=== PATIENT | male | born 1975 | race Caucasian/White ===

== ENCOUNTER 2016-09-18 11:13 | Inpatient (IN) ==
[2016-09-18 12:04] LABS: URINE SOURCE CLEAN CATCH
[2016-09-18 12:04] LABS: BASO% 0.2 % (0.0-0.8); EOS# 0.02 X1000 (0.0-0.7); EOS% 0.1 % (0.0-10.0); HEMATOCRIT 45.8 % (42.0-52.0); HEMOGLOBIN 16.2 g/dL (14.0-18.0); IMM GRAN# 0.03 X1000 (0.0-0.04); IMM GRAN% 0.2 % (0.0-0.5); LYMPH# 1.22 X1000 (1.2-3.4); LYMPH% 7.2 % (20.5-51.1); MANUAL DIFF NEEDED? NO; MCH 31.5 PG (27-31); MCHC 35.4 g/dL (33-37); MCV 88.9 FL (81-99); MONO# 1.22 X1000 (0.11-0.59); MONO% 7.2 % (1.7-9.3); NEUT% 85.1 % (42.2-75.2); PLT 264 X1000 (130-400); RBC 5.15 XMIL (4.7-6.1)
[2016-09-18 12:10] LABS: BILIRUBIN URINE SMALL (NEGATIVE); BLOOD URINE NEGATIVE (NEGATIVE); CLARITY CLEAR (CLEAR); COLOR ORANGE; GLUCOSE URINE NEGATIVE (NEGATIVE); LEUKOCYTES URINE NEGATIVE (NEGATIVE); NITRITE URINE NEGATIVE (NEGATIVE); PROTEIN URINE TRACE mg/dL (NEGATIVE); SP GRAVITY URINE 1.025
[2016-09-18] MEDS ORDERED: NS 1,000 ML IV ONE (12:22)
[2016-09-18] MEDS ORDERED: ZOFRAN IV ONE (12:24)
[2016-09-18] MEDS ORDERED: MORPHINE IV ONE (12:24)
[2016-09-18 12:25] LABS: AGAP 13; ALKALINE PHOSPHATASE 57 U/L (32-122); AMYLASE 110 U/L (20-200); BUN 8 mg/dL (8-22); CALCIUM 9.5 mg/dL (8.8-10.2); CHLORIDE 96 mmol/L (98-107); COSMO 267; GOT 13 U/L (10-34); GPT 12 U/L (10-44); LIPASE 248 U/L (13-60); SODIUM 132 mmol/L (136-145); TCO2 23 mmol/L (25-35); TOTAL PROTEIN 7.3 g/dL (6.3-8.3)
--- NOTE | 2016-09-18 12:28 | PROVIDER DOCUMENTATION ---
HPI-Abdominal Pain/GI Problem - General Chief Complaint: Abdominal Pain Stated Complaint: ABD PAIN Time Seen by Provider: 09/18/16 12:09 Source: patient Allergies/Adverse Reactions: Patient Allergies Allergy/AdvReac Type Severity Reaction Status Date / Time No Known Allergies Allergy Verified 08/17/15 15:42 Home Medications: Home Medication List Medication Instructions Recorded Confirmed Last Taken Type Meloxicam [Mobic] 7.5 mg PO DAILY PRN #30 tablet 08/17/15 Unknown Rx Methocarbamol [Robaxin] 500 mg PO TID PRN #30 tablet 08/17/15 Unknown Rx Prednisone 10 mg PO DIRECTED #1 tab.ds.pk 08/17/15 Unknown Rx - History of Present Illness-ABD Nature of Presenting Problems: pt is a 41 y/o white male c chief complaint of LLQ abd pain that has been present x 2 days. Pt states that it has been progressively worsening. He describes the pain as an aching sensation that is made worse c movement and deep inspiration. Pt denies any bloody or dark stool however states that he had an episode of black stool last week. he denies any dysuria or hematuria. He denies any nausea or vomiting. On arrival, pt is in minimal distress. 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 Review of Systems - Adult - REVIEW OF SYSTEMS - ADULT Constitutional: reports: no symptoms reported. denies: chills, fatique Eyes: reports: no symptoms reported. denies: blurred vision, double vision Ears, Nose, Mouth & Throat: reports: no symptoms reported. denies: ear pain, nose pain Cardiovascular: reports: no symptoms reported. denies: chest pain, orthopnea Respiratory: reports: no symptoms reported. denies: cough, shortness of breath Gastrointestinal: reports: abdominal pain. denies: diarrhea, nausea Genitourinary: reports: no symptoms reported. denies: dysuria, hematuria Musculoskeletal: reports: no symptoms reported. denies: joint pain, joint swelling Integumentary: reports: no symptoms reported. denies: itching, rash Neurological: reports: no symptoms reported. denies: numbness, paresthesia Psychiatric: reports: no symptoms reported. denies: anxiety, emotional problems Endocrine: reports: no symptoms reported. denies: cold intolerance, heat intolerance Hematologic/Lymphatic: reports: no symptoms reported. denies: blood clots, low blood count Allergic/Immunologic: reports: no symptoms reported. denies: allergic reactions , frequent infections All Other Systems: Reviewed and Negative Past History - Adult - PAST MEDICAL HISTORY-ADULT Review of Records: reports: Old Records Reviewed, Nursing Assessment Review, Medications Reviewed, Social history reviewed & non-contributory. Major Childhood Illnesses: reports: denies history Cardiovascular: reports: denies history Respiratory: reports: denies history Gastrointestinal: reports: denies history Obstetrical/Gynecological: reports: denies history Genitourinary: reports: denies history Musculoskeletal: reports: denies history Neurological: reports: denies history Endocrine/Immune: reports: denies history Other Conditions: reports: denies history - IMMUNIZATION STATUS Childhood Immunizations: See Nurse Assessment Flu Vaccine: See Nurse Assessment - FAMILY HISTORY Family History: reviewed, not pertinent Physical Exam-General - PHYSICAL EXAM-ADULT Initial Vital Signs Reviewed: Yes - CONSTITUTIONAL General Appearance: alert, no apparent distress - EYES Eyes: PERRL/EOMI, pink conjunctivae - HEAD, EARS, NOSE, MOUTH & THROAT HENMT: normocephalic/atraumatic, moist mucous membranes, normal ENT inspection - NECK Neck: normal inspection - RESPIRATORY Respiratory: chest non-tender, lungs clear, normal breath sounds - CARDIOVASCULAR Cardiovascular: normal peripheral pulses, regular rate, rhythm - GASTROINTESTINAL (ABDOMEN) Abdominal Exam: soft, tenderness (LLQ guarding and tenderness) - LYMPHATIC Lymphatic: no adenopathy - MUSCULOSKELETAL Back Exam: normal inspection, no CVA tenderness, no vertebral tenderness Extremity: normal range of motion, non-tender, normal inspection - SKIN Integumentary: normal color, normal turgor, warm/dry - NEUROLOGIC Neurologic: grossly normal, no motor/sensory deficits - PSYCHIATRIC Psych/Mental Status: normal mood/affect, normal thought content, normal thought process, oriented x 3 Progress - PLAN OF CARE/RESULTS Progress/Plan/Lab Results: Vital Signs - 8 hr 09/18/16 11:27 Temperature 97.8 F Pulse Rate 101 H Respiratory Rate 20 Blood Pressure 136/82 O2 Sat by Pulse Oximetry 100 Laboratory Results - last 24 hr 09/18/16 09/18/16 11:37 12:03 WBC 16.91 H RBC 5.15 Hgb 16.2 Hct 45.8 MCV 88.9 MCH 31.5 H MCHC 35.4 RDW Std Deviation 12.8 Plt Count 264 MPV 10.0 Immature Gran % (Auto) 0.2 Neut % (Auto) 85.1 H Lymph % (Auto) 7.2 L [place] % (Auto) 7.2 Eos % (Auto) 0.1 Baso % (Auto) 0.2 Immature Gran # (Auto) 0.03 Neut # (Auto) 14.39 H Lymph # (Auto) 1.22 [place] # (Auto) 1.22 H Eos # (Auto) 0.02 Baso # (Auto) 0.03 Urine Source CLEAN CATCH Urine Color ORANGE Urine Clarity CLEAR Urine pH 6.0 Ur Specific [place] 1.025 Urine Protein TRACE A Urine Ketones TRACE A Urine Blood NEGATIVE Urine Nitrite NEGATIVE Urine Bilirubin SMALL A Urine Urobilinogen 1.0 Urine WBC NEGATIVE Urine Glucose NEGATIVE Orders Category Date Time Status Saline Loc DIRECTED Care 09/18/16 11:31 Active NPO Diet 09/18/16 11:31 Active CHEST-2 VIEWS [RAD] Stat Exams 09/18/16 12:[address] ABD/PELVIS W/ IV CONT ONLY [CT] Stat Exams 09/18/16 12:21 Ordered AMYLASE [CHEM] Stat Lab 09/18/16 11:37 Received CBC WITH ELECTRONIC DIFF [HEME] Stat Lab 09/18/16 11:37 Completed COMPREHENSIVE METABOLIC PANEL [CHEM] Stat Lab 09/18/16 11:37 Received LIPASE [CHEM] Stat Lab 09/18/16 11:37 Received 0.9% Sodium Chloride Inj [Ns] 1,000 ml Med 09/18/16 12:22 Active IV 999 mls/hr Morphine Med 09/18/16 12:24 Discontinued 4 mg IV NOW ONE Ondansetron [Zofran] Med 09/18/16 12:24 Discontinued 4 mg IV NOW ONE Result Diagrams: 09/18/16 11:37 09/18/16 11:37 - REASSESSMENT Reassessment #1 Time Reassessed: 14:10 (Discussed c Dr. Dumont who agreed c admission and plan of care after reviewing labs and imaging studies.) - CT/MRI 1 CT Study: Abdomen, Pelvis Impression: Abnormal (Inflammatory changes c phlegmon in the LUQ. Apparent descending adn sigmoid colitis c mildly thickened caraballo. No discrete abscess identified. No free air. The possibility of distal pancreatitis cannot be entirely excluded but the pancreas itself does not appear substantially inflammed - radiology report) - CONSULTS/PCP/HOSPITALIST Notification #1 *Consult/PCP/Hospitalist*: Dr. Seaman (General Surgery) Time Discussed: 14:31 (Discussed imaging and lab results. he feels that this does not require immediate surgery. Recommends admit to hospitalist. He will consult. Recommend starting Zosyn 3.375) #2 Consult: Dr. Faustin (Hospitalist) Time Discussed: 14:38 (Will see pt in the ER and admit.) Departure - Departure Time of Disposition Decision: 14:34 DIAGNOSIS: Phlegmon, Colitis Pancreatitis Qualifiers: Chronicity: acute Pancreatitis type: unspecified pancreatitis type Acute pancreatitis complication: unspecified Qualified Code(s): K85.90 - Acute pancreatitis without necrosis or infection, unspecified Disposition: ADMITTED INPATIENT 09 Certified Medical Emergency: Emergent Condition: Stable Referrals and Follow-Ups: None,PCP [Primary Care Provider] - Attestation - Physician/ ADOLPH Attestation Patient care was provided by Advanced Practice Provider:: Yes Advanced Practice Provider:: Elvin Sweet Advanced Practice Provider documentation review:: The Mid-level provider documentation, treatment plan and medical decision making was reviewed by the physician who agrees with all treatment and medical decision making by the P.
[2016-09-18 12:40] LABS: URINE CAST NONE SEEN /LPF; URINE CRYSTAL NONE SEEN /HPF; URINE CULTURE NEEDED? NO; URINE EPITHELIAL CELLS <10 /HPF (<10); URINE RBC <10 /HPF (<10); URINE WBC <10 /HPF (<10)
--- NOTE | 2016-09-18 13:32 | Diag Imaging Result Document ---
PROCEDURE NAME: CHEST-2 VIEWS - 09/18/2016 FRONTAL AND LATERAL CHEST, TWO VIEWS: FINDINGS: The lungs are well expanded. The heart is not enlarged. The vessels are not distended. No pneumonia. No pleural effusions. No pneumothoraces. IMPRESSION: No acute abnormality.
--- NOTE | 2016-09-18 13:49 | Diag Imaging Result Document ---
PROCEDURE NAME: CT ABD/PELVIS W/ IV CONT ONLY - 09/18/2016 CT ABDOMEN AND PELVIS WITH IV CONTRAST ONLY: Exam performed with intravenous contrast only per request of the referring provider. A dose-reduction protocol was used. COMPARISON: No comparison exam. FINDINGS: There are inflammatory changes of fat at the left upper quadrant abdomen with phlegmon. These partially surround the splenic flexure of the colon. The colon proximal to the splenic flexure is mildly distended with air and fecal debris. The left colon from the splenic flexure to the sigmoid is not distended and appears to have mildly thickened caraballo. These findings are suspicious for our descending and sigmoid colitis. Some of the inflammatory changes are located near the distal pancreas and pancreatitis cannot be entirely excluded, but the pancreas itself does not appear grossly inflamed. There is no extraluminal gas or abscess identified. There is no free air identified. There is no evidence of bowel obstruction. The appendix is mildly prominent in size but does not appear inflamed. The inflammatory changes abut the inferior spleen but the spleen, itself, has homogeneous attenuation. The liver and adrenal glands are unremarkable. There are no calcified gallstones or pericholecystic inflammation seen. The bilateral kidneys enhance homogeneously. There is no hydronephrosis. There are nonspecific small retroperitoneal lymph nodes. IMPRESSION: 1. Inflammatory changes with phlegmon in left upper quadrant. Apparent descending and sigmoid colitis with mildly thickened caraballo. No discrete abscess identified. No free air. 2. The possibility of distal pancreatitis cannot be entirely excluded but the pancreas, itself, does not appear substantially inflamed.
[2016-09-18] MEDS ORDERED: MORPHINE IM ONE (14:38)
[2016-09-18] MEDS ORDERED: ATIVAN IV PRN (15:17)
[2016-09-18] MEDS: NICODERM PATCH TD SCH (15:30)
[2016-09-18] MEDS ORDERED: LEVAQUIN 500 MG/D5W 500 MG/100 ML IVPB IV SCH (15:30)
[2016-09-18] MEDS ORDERED: ZOSYN 3.375 GM/NS 3.375 GM/50 ML IVPB IV SCH (15:30)
[2016-09-18] MEDS ORDERED: FLAGYL 500 MG/NS 500 MG/100 ML IVPB IV SCH (15:30)
[2016-09-18] MEDS ORDERED: SODIUM CHLORIDE 0.9% INJ SCH (15:30)
--- NOTE | 2016-09-18 16:00 | HISTORY AND PHYSICAL ---
CHIEF COMPLAINT: Abdominal pain. HISTORY OF PRESENT ILLNESS: Mr. Renee is a 41-year-old, male with a history of alcohol and nicotine dependence. Otherwise, no documented medical history. He presents with 48 hours of worsening abdominal pain, acute onset. He reports around 2 days ago he started having a left lower quadrant pain, which he describes as more sharp in nature, constant and radiating up into his shoulder blade on the left. He has not been able to eat. He has been mildly nauseous, but no vomiting. He denies any diarrhea. He denies any hematochezia or hematemesis. He reports chills last night, but no fevers. He denies any chest pain or shortness of breath. No lower extremity edema. He came to the ER today for evaluation. In the ER, he had a CT of the abdomen and pelvis done. It showed findings consistent with sigmoid colitis and phlegmon. Laboratory data shows an elevated white count. He is tachycardic, and giving him criteria for sepsis. At this time, his vital signs are stable and we are going to admit him for further treatment and evaluation. PAST MEDICAL HISTORY: 1. Nicotine dependence. 2. Alcohol dependence. 3. Gastritis. SURGICAL HISTORY: None. SOCIAL HISTORY: Patient smokes a half a pack a day. He reports he drinks 8-9 beers a day from to Saturday. He denies drug use. However, he did state that he took some of his aunt's pain medicine yesterday, which he is not prescribed for. He has 3 children. 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 His fiancee is at the bedside. FAMILY HISTORY: Noncontributory. REVIEW OF SYSTEMS: Fourteen-point review of systems obtained and found to be negative with the exception of the HPI. ALLERGIES: None. MEDICATIONS: None. PHYSICAL EXAMINATION: VITAL SIGNS: Blood pressure is 136/82, heart rate 101, respiratory rate is 20, O2 saturation 100% on room air. Temperature is 97.8. GENERAL: This is a well-developed, well-nourished, male, laying in the hospital bed in no acute distress. NEUROLOGIC: Nonfocal. Patient is awake alert, and oriented. He follows commands without focal deficits. HEENT: Head is atraumatic and normocephalic. His pupils are equal, round, and reactive to light. Oral mucosa is moist. Trachea is midline. NECK: No JVD or carotid bruits. CHEST: Diminished at the bases. Otherwise clear to auscultation bilaterally. CARDIOVASCULAR: Regular rate and rhythm. S1-S2 is noted. No murmurs, gallops , clicks, rubs. GI: Left lower quadrant tenderness to palpation. Otherwise belly is soft. Nondistended. Bowel sounds are positive. EXTREMITIES: Without edema, clubbing or cyanosis. Pulses are palpable bilaterally. DIAGNOSTIC DATA: Abdomen and pelvis CT show inflammatory changes with phlegmon in the left upper quadrant, apparent descending and sigmoid colitis with mildly thickened caraballo. No discrete abscess identified. No free air. Possibility of distal pancreatitis cannot be entirely excluded. Chest x-ray is negative. WBC 16.91, hemoglobin 16.2, hematocrit 45.8, platelet count 264. Sodium 132, potassium 4.0, chloride 96, CO2 of 23, anion gap 13, BUN 0.8, glucose 171. Bilirubin 1. AST 13, ALT 12, alkaline phosphatase 57, lipase 248. UA does not show acute abnormalities. ASSESSMENT AND PLAN: 1. Colitis with phlegmon: We are going to consult GI and surgery. We will get blood cultures and lactic acid. Start levaquin and flagyl. Continue IV fluids and pain medications and keep the patient n.p.o. 2. Systemic inflammatory response syndrome/sepsis: Patient meets criteria with tachycardia, white count, and source of gastritis and phlegmon. Blood cultures and broad- spectrum antibiotics will be initiated. We will also continue IV fluids. 3. Alcohol dependence: Patient has been highly advised to quit drinking. We will add p.r.n. IV Ativan for withdrawal. Check a B12, folate. 4. Nicotine dependence: Patient has been highly advised to quit smoking. Nicotine patch has been prescribed and will continue daily cessation education. 5. Deep vein thrombosis prophylaxis with sequential compression devices given. Dictated by PAT Spence for Brisa Faustin MD cc: PAT Spence MD The patient was seen and examined by me. I agree with the assessment and plan as dictated. [facility]
[2016-09-18] MEDS: PROTONIX IV SCH (16:14)
[2016-09-18] MEDS: NS 1,000 ML IV SCH (16:40)
[2016-09-18 17:36] LABS: HDL 69 mg/dL (35-55); LDL 93 mg/dL; TRIGLYCERIDES 75 mg/dL (39-160); VLDL 15 mg/dL
[2016-09-18 17:42] LABS: FREE T4 0.99 ng/dL (0.93-1.70)
[2016-09-18] MEDS: NORCO-5 PO PRN ×2 (18:23→22:41)
[2016-09-18 18:38] LABS: UR AMPHETAMINES QUAL NONE DETECTED (NONE DETECT); UR BARBITUATES QUAL NONE DETECTED (NONE DETECT); UR BENZODIAZEPIN QUAL NONE DETECTED (NONE DETECT); UR CANNABINOIDS QUAL PRESUMPTIVE POSITIVE (NONE DETECT); UR COCAINE QUAL NONE DETECTED (NONE DETECT); UR METHADONE QUAL NONE DETECTED (NONE DETECT); UR OPIATES QUAL NONE DETECTED (NONE DETECT); UR OXYCODONE QUAL PRESUMPTIVE POSITIVE (NONE DETECT); UR PCP QUAL NONE DETECTED (NONE DETECT)
[2016-09-18] MEDS: DILAUDID IV PRN ×2 (21:00→21:40)
[2016-09-18] MEDS: FLAGYL 500 MG/NS 500 MG/100 ML IVPB IV SCH (21:00)
--- NOTE | 2016-09-18 22:48 | CONSULTATION ---
DATE OF CONSULTATION: 09/18/2016 REFERRING PHYSICIAN: Brisa Faustin M.D. INDICATION FOR CONSULTATION: Abdominal pain. PRIMARY CARE PHYSICIAN: None. HISTORY OF PRESENT ILLNESS: The patient is a 41-year-old white male who presented to the emergency room for the evaluation of 36 hours of left upper quadrant, left middle quadrant abdominal pain. He reports the acute onset approximately 2 days ago. He describes the pain as sharp in nature that is constant with radiation into the shoulder blades. He notes that for the last week he has been acutely constipated. He typically has a daily bowel movement with no abdominal pain. In the last week, he reports a change in stool caliber and difficulty with defecation. He notes mild nausea but no vomiting. He denies blood in his stool but notes that his stools have been darker than usual. In the emergency room, a CT scan was performed and is consistent with sigmoid and descending colon colitis. His labs were consistent with acute colitis in that there is elevated white blood cell count. His CRP is also elevated at 128.45. The CT scan is also concerning for possible pancreatitis. The patient reports that he drinks 8-9 beers on a daily basis and has done so for the last 15-20 years. He typically drinks through Saturday. 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 Because of his symptoms, we are asked to participate in his care. PAST MEDICAL HISTORY: 1. Enterocolitis versus gastritis in 2013 treated with Prilosec. 2. Nicotine dependence in that he smokes 1/2 pack to 1 pack per day of cigarettes for last 20 years. 3. Alcohol dependence where he drinks 8-9 beers per day at least 4-5 days per week for the last 15-20 years. He denies recreational drug use. He is engaged and has 3 children. FAMILY HISTORY: Negative for colon cancer and colon polyps. MEDICATION ALLERGIES: None. HOME MEDICATIONS: None. REVIEW OF SYSTEMS: Positive for the information as noted above. PHYSICAL EXAM: Vital signs: Blood pressure is 134/70, pulse 76, respiration 18 , temperature of 98.7 degrees. HEENT: Negative. There is no jaundice. His conjunctivae are pale. His oropharyngeal mucosal membranes are moist. Pulmonary: Lungs are clear to auscultation with normal expiratory effort. Cardiovascular Exam: Reveals regular rate and rhythm with no murmurs, gallops, or rubs. Abdominal Exam: Reveals normoactive bowel sounds. The abdomen is soft with moderate left upper quadrant, left middle quadrant tenderness. There is no rebound or guarding. Extremities: Bilaterally are negative for cyanosis, clubbing, or edema. Skin: He has multiple tattoos. OBJECTIVE DATA: Remarkable for hemoglobin of 16.2 with hematocrit of 45.8 and a white count of 16.91. He has 264,000 platelets. Sodium is 132, potassium 4.0, chloride 96, CO2 of 23, BUN 8, creatinine 0.8 with a glucose of 171. Calcium is 9.5, total bilirubin 1.0, AST 13, ALT 12, amylase 110, vitamin B12 361, alkaline phosphatase 57, total protein 7.3 and albumin 4.0. His lipase is 248 and TSH is 3.29. IMPRESSION: 1. Abdominal pain. 2. Acute colitis. 3. History of gastroenteritis versus gastritis. 4. Nausea. 5. Vitamin B12 insufficiency (his level is less than 400). 6. Possible pancreatitis. RECOMMENDATION: 1. The patient is currently receiving Levaquin/Flagyl. I would agree with antibiotics for at least 10 days. 2. I agree with blood cultures pending further evaluation. 3. The patient has a history of alcohol dependence but normal liver function tests. I agree with monitoring for alcohol withdrawal. 4. He has a history of enterocolitis versus gastritis. I recommend Protonix 40 mg IV q.12 hours as he was taking Mobic on an intermittent basis at home although was not prescribed. 5. After his inflammation resolves, we will plan to perform EGD and colonoscopy to see if there is a potential cause that would result in his current symptoms. 6. Please check stool lactoferrin and a serum inflammatory bowel disease panel. 7. Additional recommendations to follow based on his clinical course. cc: Brisa Faustin MD [facility]
[2016-09-19] MEDS: DILAUDID IV PRN ×7 (01:18→22:15)
[2016-09-19] MEDS: NS 1,000 ML IV SCH ×3 (01:19→15:38)
[2016-09-19] MEDS: NORCO-5 PO PRN ×6 (02:50→23:59)
[2016-09-19] MEDS: FLAGYL 500 MG/NS 500 MG/100 ML IVPB IV SCH ×4 (03:02→22:15)
[2016-09-19 07:31] LABS: HEMOGLOBIN A1C 4.7 % (4.8-6.0)
[2016-09-19 07:40] LABS: AGAP 14; BUN 6 mg/dL (8-22); CALCIUM 8.7 mg/dL (8.8-10.2); CHLORIDE 101 mmol/L (98-107); COSMO 271; LIPASE 91 U/L (13-60); POTASSIUM 4.3 mmol/L (3.5-5.1); SODIUM 137 mmol/L (136-145); TCO2 22 mmol/L (25-35)
[2016-09-19 07:50] LABS: HEMATOCRIT 43.9 % (42.0-52.0); HEMOGLOBIN 14.9 g/dL (14.0-18.0); MCH 31.5 PG (27-31); MCHC 33.9 g/dL (33-37); MCV 92.8 FL (81-99); MPV 10.2 FL (7.4-10.4); RBC 4.73 XMIL (4.7-6.1)
[2016-09-19] MEDS: NICODERM PATCH TD SCH (09:26)
--- NOTE | 2016-09-19 10:38 | CONSULTATION ---
DATE OF CONSULTATION: 09/19/2016 HISTORY OF PRESENT ILLNESS: Mr. Saurabh Renee is a 41-year-old white male who 3 days ago began hurting in his abdomen and over the next 24 hours this pain persisted, was severe, causing him to present to the emergency department yesterday morning for evaluation. A CT scan suggested inflammation involving the splenic flexure and descending colon without evidence of abscess or free air. He has been admitted for IV antibiotics. We were asked to evaluate him. PAST MEDICAL HISTORY: He has had 1 broken bone but otherwise he has had no surgery or hospitalizations. MEDICATIONS: None. ALLERGIES: None. SOCIAL HISTORY: He works in [employer] and is very active. He does drink about 9 beers a day, through Saturday. He smokes 1 pack of cigarettes a day. He has a girlfriend for the last 3 years who is at his bedside. REVIEW OF SYSTEMS: He was seen in [place] ER about 3 years ago and was diagnosed with gastritis. He has had no significant weight loss and continues to be very active during the days. He has regular bowel movements. A 14-point review of systems was performed. FAMILY HISTORY: Noncontributory. PHYSICAL EXAMINATION: General: Mr. Narinder Renee is a middle-aged white male, who is of good weight and strong. Appears to be healthy. He is awake and cooperative. No acute distress. HEENT Exam: No jaundice. No oral lesions. Neck: No cervical or supraclavicular lymphadenopathy. Heart: Has a regular rate. Lungs: Clear to auscultation and percussion bilaterally. Abdomen: Flat. He is tender in the left upper quadrant of his abdomen. There is no palpable mass. No scar. No evidence of hernia. He has left-sided costovertebral tenderness. Rectal: Exam was not performed. Extremities: He does have palpable peripheral pulses. No peripheral edema. Neurological: He is alert and oriented x3 and appropriate. DIAGNOSTIC DATA: CT scan suggested colitis involving the splenic flexure and descending colon. His white blood cell count is decreased from 16 to 14 on IV antibiotics. ASSESSMENT AND PLAN: GI medicine has been consulted, Dr. Corral. I agree with the current treatment. cc: Wendy Seaman MD
--- NOTE | 2016-09-19 11:02 | PROGRESS NOTE ---
DATE: 09/19/2016 SUBJECTIVE: The patient states that he feels a little bit better this morning. He states that he got up to go the restroom and, when he came back, he was having abdominal pain, but once he settled down the pain went away. He has not had a bowel movement yet. OBJECTIVE: Vital Signs: Temperature 98.1 degrees, blood pressure 121/68, heart rate 85, respirations 18, O2 saturations 92% on room air. General: This is a middle- aged male, lying in bed in no acute distress. Head: Normocephalic, atraumatic. Heart: S1, S2. Normal. Regular rate and rhythm. Lungs: Clear to auscultation bilaterally. No wheezes, no rales, no rhonchi. Abdomen: Positive for epigastric tenderness and lower abdominal tenderness. Extremities: No edema. No cyanosis. No calf tenderness. Neurologic: The patient is alert and oriented x3. LABS: White blood cell count 14, hemoglobin 14, hematocrit 43, platelets 218. Sodium 137, potassium 4.3, chloride 101, CO2 22, BUN 6, creatinine 0.8, glucose 92. ASSESSMENT AND PLAN: 1. Colitis. Continue on intravenous antibiotic therapy plus intravenous fluids and as needed pain medication. Gastroenterology is following. 2. Mild pancreatitis. Again, continue on intravenous fluid hydration, antiemetics and as needed pain medication. 3. Phlegmon. The patient has been seen by the general surgeon and we will continue to monitor this closely. 4. Tobacco dependence. Continue on the NicoDerm patch. 5. Alcohol abuse. Continue with as-needed Ativan. 6. Gastrointestinal prophylaxis. Continue on intravenous Protonix. 7. Deep vein thrombosis prophylaxis. Continue with sequential compression devices. cc: MD LETA Bloom
[2016-09-19] MEDS: LEVAQUIN 750 MG/D5W 750 MG/150 ML IVPB IV SCH (15:13)
[2016-09-19] MEDS: PROTONIX IV SCH (15:14)
[2016-09-20] MEDS: DILAUDID IV PRN ×7 (01:29→21:44)
[2016-09-20] MEDS: FLAGYL 500 MG/NS 500 MG/100 ML IVPB IV SCH ×4 (04:17→22:33)
[2016-09-20] MEDS: NORCO-5 PO PRN ×5 (05:19→23:55)
[2016-09-20] MEDS: NS 1,000 ML IV SCH ×4 (05:20→21:05)
[2016-09-20 07:11] LABS: HEMATOCRIT 41.5 % (42.0-52.0); HEMOGLOBIN 14.1 g/dL (14.0-18.0); MCH 31.3 PG (27-31); MPV 10.1 FL (7.4-10.4); RBC 4.51 XMIL (4.7-6.1)
[2016-09-20 07:23] LABS: AGAP 15; BUN 6 mg/dL (8-22); CALCIUM 8.7 mg/dL (8.8-10.2); CHLORIDE 102 mmol/L (98-107); COSMO 275; POTASSIUM 4.3 mmol/L (3.5-5.1); SODIUM 139 mmol/L (136-145); TCO2 22 mmol/L (25-35)
[2016-09-20 07:34] LABS: MAGNESIUM 1.8 mg/dL (1.5-2.7)
[2016-09-20] MEDS: NICODERM PATCH TD SCH (09:19)
--- NOTE | 2016-09-20 13:19 | PROGRESS NOTE ---
DATE: 09/20/2016 SUBJECTIVE: The patient states that he feels better today. He denies having any nausea or vomiting. He reports that he had a small liquid bowel movement. OBJECTIVE: Vital Signs: Temperature 97.4 degrees, blood pressure 126/79, heart rate 88, respirations 14, and O2 saturations 97% on room air. General: This is a middle-aged male, lying in bed, in no acute distress. Head: Normocephalic, atraumatic. Heart: S1 and S2, normal. Regular rate and rhythm. Lungs: Clear to auscultation bilaterally. No wheezing. No rales. No rhonchi. Abdomen: Positive bowel sounds. Soft, nontender, nondistended. Extremities: No edema. No cyanosis. No calf tenderness. Neurologic: The patient is alert and oriented x3. LABORATORIES: White blood cell count 14, hemoglobin 14, hematocrit 41, platelets 223,000. Sodium 139, potassium 4.3, chloride 102, CO2 of 22, BUN 6, creatinine 0.7. ASSESSMENT AND PLAN: 1. Colitis. Continue on the current intravenous antibiotic regimen. 2. Mild pancreatitis, improved. 3. Phlegmon. We will continue to monitor this as the patient's colitis and pancreatitis get better. 4. Tobacco dependence. Continue on the Nicoderm patch. 5. Alcohol abuse. Continue on as needed Ativan. 6. Gastrointestinal prophylaxis. Continue on Protonix. 7. Deep vein thrombosis prophylaxis. The patient has been encouraged to ambulate. Continue with sequential compression devices. cc: Brisa Faustin MD
[2016-09-20] MEDS: PROTONIX IV SCH (16:27)
--- NOTE | 2016-09-20 16:44 | Diag Imaging Result Document ---
PROCEDURE NAME: RIBS UNILAT W/PA CHEST LEFT - 09/20/2016 PLAIN RADIOGRAPH OF THE CHEST AND LEFT RIBS 5 VIEWS: COMPARISON: Chest radiograph dated 09/18/2016. FINDINGS: No discrete rib fracture or intrinsic osseous lesion can be identified. The PA chest radiograph view is overexposed. However, the lungs appear to be grossly clear and stable. Cardiac silhouette appears to be stable as well. IMPRESSION: No definite rib fracture or intrinsic osseous lesion identified by plain radiograph.
[2016-09-20] MEDS: LEVAQUIN 750 MG/D5W 750 MG/150 ML IVPB IV SCH (18:32)
[2016-09-20] MEDS ORDERED: MIRALAX PO ONE (21:16)
--- NOTE | 2016-09-20 22:07 | PROGRESS NOTE ---
DATE: 09/20/2016 REFERRING PHYSICIAN: Brisa Faustin M.D. SUBJECTIVE: The patient states that he is considerably better today. His abdominal pain is less and he is hungry. He has only had a small bowel movement, which consisted of a small liquid bowel movement. He is requesting MiraLAX. He states that he feels that he is close to ready to go home. OBJECTIVE: Vital signs: On exam, his blood pressure is 130/79, pulse 86, respiration 20, temperature of 98.3 degrees. Abdomen: Is soft and nontender. He is able to poke his abdomen with no tenderness. Chest: There is a bruise on his left chest from his nightmare and recent contusion of his left chest and rib area overnight. OBJECTIVE DATA: Reveals a hemoglobin 14.1, with hematocrit of 41.5 and a white count of 14.03. He has 228,000 platelets. Sodium is 139, potassium 4.3, chloride 102, CO2 22, BUN 6, creatinine 0.7, glucose 91 and calcium of 8.7 and a magnesium of 1.8. His lipase is 44. IMPRESSION: 1. Acute colitis. 2. Acute pancreatitis. 3. Recent trauma to the left chest wall. 4. History of gastroenteritis. 5. Nausea. 6. B12 insufficiency. RECOMMENDATION: 1. I would advance the patient's diet as tolerated. I will give him a full liquid diet this evening. If he tolerates his diet tonight and for breakfast in the morning, I would advance him to a gastrointestinal soft diet. 2. I would continue his antibiotics for at least 10 days. 3. Continue his proton pump inhibitor therapy with Protonix 40 mg IV q.12 hours as an inpatient. I would transition him to omeprazole 40 mg once a day as an outpatient. 4. In 2-4 weeks, will plan to perform an esophagogastroduodenoscopy and colonoscopy. This will allow time for his inflammation to resolve. 5. His inflammatory bowel disease panel and lactoferrin stool studies are currently pending. We await those results. 6. If he is stable clinically and able to tolerate his diet tomorrow, it would be reasonable to pursue outpatient management. 7. I have administered a dose of MiraLAX tonight to help him with defecation. Please monitor his stool output for visible blood. 8. Additional recommendations to follow based on his clinical course. cc: MD Brisa Avitia MD [facility]
[2016-09-21] MEDS: NS 1,000 ML IV SCH ×2 (02:46→05:18)
[2016-09-21] MEDS: DILAUDID IV PRN ×2 (03:30→07:01)
[2016-09-21] MEDS: FLAGYL 500 MG/NS 500 MG/100 ML IVPB IV SCH ×2 (05:16→09:08)
[2016-09-21] MEDS: NORCO-5 PO PRN ×2 (05:16→08:59)
[2016-09-21 07:15] LABS: HEMATOCRIT 40.3 % (42.0-52.0); HEMOGLOBIN 13.7 g/dL (14.0-18.0); MCH 31.4 PG (27-31); MCV 92.4 FL (81-99); RBC 4.36 XMIL (4.7-6.1)
[2016-09-21 07:17] LABS: MAGNESIUM 1.8 mg/dL (1.5-2.7)
[2016-09-21 07:22] LABS: AGAP 10; BUN 4 mg/dL (8-22); CALCIUM 8.4 mg/dL (8.8-10.2); CHLORIDE 102 mmol/L (98-107); COSMO 273; POTASSIUM 3.9 mmol/L (3.5-5.1); SODIUM 138 mmol/L (136-145); TCO2 26 mmol/L (25-35)
[2016-09-21 07:38] VITALS: BP 120/74
[2016-09-21] MEDS: NICODERM PATCH TD SCH (08:56)
[2016-09-21] MEDS ORDERED: MIRALAX PO SCH (09:00)
--- NOTE | 2016-09-21 22:42 | DISCHARGE SUMMARY ---
ADMISSION DATE: 09/18/2016 DISCHARGE DATE: 09/21/2016 CONSULTATIONS: 1. Stacey Corral M.D. with Gastroenterology. 2. Main Seaman M.D. with General Surgery. PERTINENT PROCEDURES: 1. Abdomen and pelvis CT showed inflammatory changes with phlegmon in the left upper quadrant. Apparent ascending and sigmoid colitis with mildly thickened caraballo. No discrete abscess identified. No free air. The possibility of distal pancreatitis could not be entirely excluded but the pancreas itself does not appear to be substantially inflamed. 2. Random chest x-ray showed no definite rib fracture or intrinsic osseous lesion identified by plain radiographs. DISCHARGE DIAGNOSES: 1. Acute colitis 2. Mild pancreatitis 3. Phlegmon 4. Tobacco dependence. 5. Alcohol abuse HOSPITAL COURSE: Mr. Renee is a 41-year-old, male with a history of alcohol and nicotine dependence, gastritis who presented to the ED with 48 hours worsening abdominal pain acute onset. He reports around 2 days prior he started having left lower quadrant pain more sharp in nature, consistent, radiating up to his shoulder blade on the left. He had not been able to eat. He had some mild nausea but no vomiting. No diarrhea. No hematochezia or hematemesis. He did report chills but no fevers. In the ED a CT of the abdomen was performed and showed findings consistent with sigmoid colitis and phlegmon. Laboratory data revealed elevated white count. He was tachycardiac giving him criteria for sepsis. Vital signs were stable. Patient was admitted for further evaluation, GI consultation as well as Surgery. He was started on Levaquin and Flagyl as well as IV fluids. He was monitored closely for any alcohol withdrawal and provided with p.r.n. medication as well as supplementation and provided with a nicotine patch as well as smoking cessation. Patient's diet was advanced as tolerated. He has tolerated that well. He will continue on p.o. antibiotics as well as continue on PPI and in 2-[address] Corral will perform an EGD and colonoscopy, giving the inflammation time to resolve. VITAL SIGNS AT TIME OF DISCHARGE: Temperature is 98.2 degrees, heart rate 81, respirations 20, blood pressure 120/74, O2 is 93% on room air. DISCHARGE DIET: GI soft. DISCHARGE MEDICATIONS: 1. [place] 5, 1 each p.o. q.4 hours p.r.n. 2. Levaquin 750 mg p.o. daily for 7 days. 3. Flagyl 500 mg p.o. q.6 hours. 4. Prilosec 40 mg p.o. daily. 5. MiraLAX 17 g p.o. daily. FOLLOWUP: Patient is being discharged home. Will follow up with Dr. Corral in 2 -4 weeks. Patient can return to the ED for any worsening of symptoms. Dictated by PAT Hernandez for Brisa Faustin MD cc: Brisa Faustin MD [facility]
== END 2016-09-21 11:29 | disposition home or self-care (01) ==
LOC: ED 11:13 → EDIPHOLD 17:00 → SUATTDRO 17:00 → 3N 17:19
PROVIDERS: ATTEND Internal Medicine